=== PATIENT | female | born 1950 | race Caucasian/White ===

== ENCOUNTER 2017-07-21 07:15 | Day surgery (SDC) | payer OTHER ==
[~2017-07-21 07:15] MED LIST: KETO10TA2 PO
== END 2017-07-21 12:35 | disposition home or self-care (01) ==
LOC: AMB-ENDOS 07:15 → CIR.AMB 13:00 → ADM 13:00
DX: K64.8 Other hemorrhoids (principal); Z12.11 Encounter for screening for malignant neoplasm of colon

== ENCOUNTER 2017-10-24 06:06 | Inpatient (IN) | payer OTHER ==
[~2017-10-24] VITALS: Ht 160 cm; Wt 54.4 kg
[~2017-10-24 06:06] MED LIST changes: +LISINOPRIL10 MG PO
[2017-10-27] MEDS ORDERED: BACTRIM DS TAB1 EACH PO (13:14)
[2017-10-27] MEDS ORDERED: RECTICARE30 GM TOP (13:15)
[2017-10-27] MEDS ORDERED: KETO10TA2 PO (13:16)
[2017-10-27] MEDS ORDERED: PERCOCET 5-3251 EACH PO (13:16)
== END 2017-10-27 13:51 | disposition home or self-care (01) | DRG 334 ==
LOC: CIR.AMB 06:06 → SURH 13:12 → O/R 13:12 → SURH 13:21
PROVIDERS: Surgery
PROC: 0DBP0ZZ Excision of Rectum, Open Approach (ICD-10-PCS; 2017-10-24)
PROC: 0UBG0ZZ Excision of Vagina, Open Approach (ICD-10-PCS; 2017-10-24)
PROC: 0HQ9XZZ Repair Perineum Skin, External Approach (ICD-10-PCS; 2017-10-24)
PROC: 0DQR0ZZ Repair Anal Sphincter, Open Approach (ICD-10-PCS; principal; 2017-10-24 07:00)
DX: N82.3 Fistula of vagina to large intestine (principal); R15.9 Full incontinence of feces; N36.42 Intrinsic sphincter deficiency (ISD); I10 Essential (primary) hypertension

== ENCOUNTER 2018-02-28 09:59 | Inpatient (IN) | payer OTHER ==
[~2018-02-28] VITALS: Ht 160 cm; Wt 54.4 kg
[~2018-02-28 09:59] MED LIST changes: +AMLODIPINE BESYL5 MG PO; +BACTRIM DS TAB1 EACH PO; +GAS-X125 MG PO; +LOPERAMIDE2 M1 PO; +PERCOCET 5-3251 EACH PO; +QUESTRAN PACKET4 GM PO; +RECTICARE30 GM TOP
[2018-03-16] MEDS ORDERED: CHOLESTYRAMINE P4 GM PO (12:37)
[2018-03-16] MEDS ORDERED: HYOSCYAMINE0.125 M1 SL (12:37)
[2018-03-16] MEDS ORDERED: GAS-X125 MG PO (12:37)
[2018-03-16] MEDS ORDERED: KETO10TA2 PO (12:38)
== END 2018-03-16 14:08 | disposition home or self-care (01) | DRG 331 ==
LOC: SURH 03-13 07:00 → O/R 03-13 08:39 → SURH 03-13 08:39
PROVIDERS: Surgery
PROC: 3E0F7GC Introduction of Other Therapeutic Substance into Respiratory Tract, Via Natural or Artificial Opening (ICD-10-PCS; 2018-03-13)
PROC: 0DQB4ZZ Repair Ileum, Percutaneous Endoscopic Approach (ICD-10-PCS; principal; 2018-03-13 07:00)
DX: Z43.2 Encounter for attention to ileostomy (principal); I10 Essential (primary) hypertension; R15.9 Full incontinence of feces

== ENCOUNTER 2018-03-06 09:11 | Outpatient (CLI) | payer OTHER | END 2018-03-06 09:19 | disposition home or self-care (01) | LOC: RX STUDY 09:11 | DX: N82.3 Fistula of vagina to large intestine (principal) ==

== ENCOUNTER 2018-05-09 07:16 | Emergency (ER) | payer OTHER ==
[~2018-05-09] VITALS: Ht 160 cm; Wt 59.9 kg
[~2018-05-09 07:16] MED LIST changes: +CHOLESTYRAMINE P4 GM PO; +HYOSCYAMINE0.125 M1 SL
== END 2018-05-09 09:17 | disposition home or self-care (01) ==
LOC: ER 07:16
DX: G56.02 Carpal tunnel syndrome, left upper limb (principal)